=== PATIENT | male | born 1945 | race Two or more races ===

== ENCOUNTER 2019-05-23 11:44 | Outpatient (CLI) | payer MEDICARE, OTHER ==
[2019-05-23 12:38] LABS: CALCIUM, SERUM 8.9 mg/dL (8.5-10.1); POTASSIUM 4.5 mmol/L (3.5-5.1)
[2019-05-23] MEDS ORDERED: METOPROLOL TARTRATE INJ 5 MG/5 ML AMPUL IVP ONE (14:00)
[2019-05-23] MEDS ORDERED: NITROGLYCERIN 0.4 MG/TAB BOTTLE SL ONE (14:00)
[2019-05-23] MEDS ORDERED: IV NS 0.9% 500 ML IV ONE (14:00)
== END 2019-05-23 23:59 | disposition home or self-care (01) ==
LOC: CT 11:44
PROVIDERS: ATTEND Internal Medicine Cardiovascular Disease
DX: I25.10 Atherosclerotic heart disease of native coronary artery without angina pectoris (principal)
CPT/HCPCS: 36415; 75574; 80048-TC